=== PATIENT | male | born 1990 | race Caucasian/White ===

== ENCOUNTER 2021-08-15 14:42 | Outpatient (CLI) | payer OTHER | END 2021-08-15 14:43 | disposition home or self-care (01) | LOC: CSHMRI 14:42 | PROVIDERS: ATTEND Nurse Practitioner Family | DX: S39.91XA Unspecified injury of abdomen, initial encounter (principal); M67.98 Unspecified disorder of synovium and tendon, other site | CPT/HCPCS: 72195 ==